=== PATIENT | female | born 1990 | race Caucasian/White ===

== ENCOUNTER 2017-03-28 12:11 | Emergency (ER) | payer BC, MEDICAID ==
[~2017-03-28] VITALS: Ht 165.1 cm; Wt 92.1 kg
[2017-03-28 12:16] VITALS: BP 121/80
[2017-03-28] MEDS ORDERED: predniSONE 20 MG TABLET ONE (12:47)
--- NOTE | 2017-03-28 12:50 | NUR ---
RT CALLED FOR BRETAHING [place]
[2017-03-28] MEDS ORDERED: IPRATROPIUM NEB FS 0.5 MG/2.5 ML AMPUL.NEB ONE (12:58)
[2017-03-28] MEDS ORDERED: ALBUTEROL FS 2.5 MG/3 ML VIAL.NEB ONE (12:58)
[2017-03-28] MEDS ORDERED: predniSONE 20 MG TABLET PO ONE (13:00)
[2017-03-28] MEDS ORDERED: ALBUTEROL FS 2.5 MG/3 ML VIAL.NEB NEB ONE (13:00)
[2017-03-28] MEDS ORDERED: IPRATROPIUM NEB FS 0.5 MG/2.5 ML AMPUL.NEB NEB ONE (13:00)
== END 2017-03-28 13:47 | disposition home or self-care (01) ==
LOC: ER 12:12
DX: J45.901 Unspecified asthma with (acute) exacerbation (principal); Z88.0 Allergy status to penicillin; Z91.018 Allergy to other foods
CPT/HCPCS: 94640; 99283; A4606; J7512; Z7610

== ENCOUNTER 2018-05-14 20:08 | Emergency (ER) | payer BC, OTHER ==
[~2018-05-14] VITALS: Ht 165.1 cm; Wt 98.9 kg
[2018-05-14 20:30] VITALS: BP 142/71
[2018-05-14] MEDS ORDERED: FAMOTIDINE (20 MG) 20 MG TABLET ONE (20:42)
[2018-05-14] MEDS ORDERED: methylPREDNISolone SOD SUCC 125 MG/2ML VIAL ONE (20:42)
[2018-05-14] MEDS ORDERED: methylPREDNISolone SOD SUCC 125 MG/2ML VIAL IM ONE (21:00)
[2018-05-14] MEDS ORDERED: FAMOTIDINE (20 MG) 20 MG TABLET PO ONE (21:00)
== END 2018-05-14 21:14 | disposition home or self-care (01) ==
LOC: ER 20:10
DX: T78.1XXA Other adverse food reactions, not elsewhere classified, initial encounter (principal); X58.XXXA Exposure to other specified factors, initial encounter
CPT/HCPCS: 96372; 99283; A4606; J2930

== ENCOUNTER 2018-06-15 15:39 | Emergency (ER) | payer BC, OTHER ==
[~2018-06-15] VITALS: Ht 162.6 cm; Wt 83.9 kg
[2018-06-15 15:43] VITALS: BP 132/81
--- NOTE | 2018-06-15 15:50 | NUR ---
PT BIBS C/O SOMETHING IN L EYE, - VISION DISTORTION, CLEAR VISUAL FIELD, -N/V - TRAUMA
[2018-06-15] MEDS ORDERED: FLUORESCEIN SODIUM OPHTH 1 EA STRIP ONE (16:03)
[2018-06-15] MEDS ORDERED: TETRACAINE HCL/PF 0.5% UD 2 ML BOTTLE ONE (16:04)
[2018-06-15] MEDS ORDERED: FLUORESCEIN SODIUM OPHTH 1 EA STRIP OP ONE (16:30)
[2018-06-15] MEDS ORDERED: TETRACAINE HCL/PF 0.5% UD 2 ML BOTTLE OP ONE (16:30)
== END 2018-06-15 16:41 | disposition home or self-care (01) ==
LOC: ER 15:39
DX: T15.92XA Foreign body on external eye, part unspecified, left eye, initial encounter (principal); J45.909 Unspecified asthma, uncomplicated; X58.XXXA Exposure to other specified factors, initial encounter; Y93.89 Activity, other specified; Y92.89 Other specified places as the place of occurrence of the external cause; Y99.8 Other external cause status

== ENCOUNTER 2018-06-16 04:13 | Emergency (ER) | payer BC, OTHER ==
[~2018-06-16] VITALS: Ht 167.6 cm; Wt 98.0 kg
[2018-06-16 04:40] VITALS: BP 126/69
--- NOTE | 2018-06-16 04:53 | NUR ---
URINE COLLECTED AND SENT TO LAB
[2018-06-16 05:04] LABS: APPEARANCE,URINE CLEAR (CLEAR); BILIRUBIN,URINE 2+ (NEGATIVE); BLOOD, URINE 3+ Ery/uL (NEGATIVE); COLOR,URINE YELLOW (YELLOW); KETONES,URINE 1+ (NEGATIVE); LEUKOCYTE ESTERASE ,URINE 2+ (NEGATIVE); NITRITE, URINE POSITIVE (NEGATIVE); PH,URINE 6.5 (5.0-8.0); PROTEIN,URINE 3+ mg/dl (NEGATIVE); UGLUCOSE NEGATIVE (NEGATIVE)
[2018-06-16 05:08] LABS: BACTERIA,URINE Few /HPF (None Seen); RBC,URINE TOO NUMEROUS TO COUN /HPF (0-2); SQUAMOUS EPITHELIAL CELL,UR Few /HPF (None Seen); WBC,URINE 21-50 /HPF (0-3)
[2018-06-16] MEDS ORDERED: PHENAZOPYRIDINE HCL 200 MG TABLET ONE (05:49)
[2018-06-16] MEDS ORDERED: NITROFURANTOIN/NITROFURAN MAC 100 MG CAPSULE ONE (05:49)
[2018-06-16] MEDS ORDERED: NITROFURANTOIN/NITROFURAN MAC 100 MG CAPSULE PO ONE (06:00)
[2018-06-16] MEDS ORDERED: PHENAZOPYRIDINE HCL 200 MG TABLET PO ONE (06:00)
== END 2018-06-16 06:03 | disposition home or self-care (01) ==
LOC: ER 04:14
DX: N30.00 Acute cystitis without hematuria (principal); J45.909 Unspecified asthma, uncomplicated
CPT/HCPCS: 81000-TC; 84703-TC; 87086-TC; 87186-TC

== ENCOUNTER 2018-06-18 15:43 | Emergency (ER) | payer BC, OTHER ==
[~2018-06-18] VITALS: Ht 167.6 cm; Wt 97.5 kg
[2018-06-18 15:43] VITALS: BP 153/75
--- NOTE | 2018-06-18 16:41 | NUR ---
SEEN AND EXAMINED BY .
[2018-06-18] MEDS ORDERED: LEVOFLOXACIN (250MG) 250 MG TABLET ONE (17:00)
[2018-06-18] MEDS ORDERED: LEVOFLOXACIN (250MG) 250 MG TABLET PO SCH (17:00)
--- NOTE | 2018-06-18 17:15 | NUR ---
Patient discharged to home in stable condition. Written and verbal after care instructions given. Patient verbalizes understanding of instruction.
== END 2018-06-18 17:17 | disposition home or self-care (01) ==
LOC: ER 15:55
DX: N39.0 Urinary tract infection, site not specified (principal); J45.909 Unspecified asthma, uncomplicated; Z98.890 Other specified postprocedural states
CPT/HCPCS: 87491; 87591; 99283; A4606

== ENCOUNTER 2023-02-03 12:24 | Emergency (ER) | payer BC, MEDICAID ==
[~2023-02-03] VITALS: Ht 165.1 cm; Wt 99.8 kg
[2023-02-03] MEDS ORDERED: ALBU18HF2 INH (13:00)
[2023-02-03] MEDS ORDERED: FLUT9.9S16 NS (13:00)
[2023-02-03] MEDS ORDERED: CETI1TAB9 PO (13:00)
[2023-02-03] MEDS ORDERED: AZIT1PAC9 PO (13:00)
[2023-02-03 13:44] VITALS: BP 131/78; TEMP 98.5; O2SAT 100
== END 2023-02-03 13:45 | disposition home or self-care (01) ==
LOC: ER 12:46
DX: R05.9 Cough, unspecified (principal); J45.909 Unspecified asthma, uncomplicated; Z91.018 Allergy to other foods

== ENCOUNTER 2023-10-06 17:38 | Emergency (ER) | payer MEDICAID, OTHER ==
[~2023-10-06] VITALS: Ht 165.1 cm; Wt 101.2 kg
[~2023-10-06 17:38] MED LIST: ALBU18HF2 INH; AZIT1PAC9 PO; CETI1TAB9 PO; FLUT9.9S16 NS
[2023-10-06] MEDS ORDERED: ALBU18HF2 INH (19:42)
[2023-10-06] MEDS ORDERED: PSEU120T99 PO (19:42)
[2023-10-06] MEDS ORDERED: BENZ-13 PO (19:42)
[2023-10-06 19:48] VITALS: BP 155/94; TEMP 98.4; O2SAT 99
== END 2023-10-06 19:48 | disposition home or self-care (01) ==
LOC: ER 17:43
DX: J06.9 Acute upper respiratory infection, unspecified (principal); J45.909 Unspecified asthma, uncomplicated; Z98.890 Other specified postprocedural states; Z79.899 Other long term (current) drug therapy; Z20.822 Contact with and (suspected) exposure to COVID-19
CPT/HCPCS: 71045-TC

== ENCOUNTER 2024-04-01 08:07 | Emergency (ER) | payer MEDICAID ==
[~2024-04-01] VITALS: Ht 165.1 cm; Wt 104.3 kg
[~2024-04-01 08:07] MED LIST changes: +BENZ-13 PO; +PSEU120T99 PO
[2024-04-01 08:15] VITALS: BP 107/65; TEMP 97.7
[2024-04-01] MEDS ORDERED: FLUT16SP16 BNOSTRILS (08:40)
[2024-04-01] MEDS ORDERED: PSEU120T83 PO (08:40)
[2024-04-01] MEDS ORDERED: [UNRECOGNIZED DRUG - CODE] PO (08:40)
[2024-04-01 08:49] VITALS: O2SAT 97
== END 2024-04-01 08:50 | disposition home or self-care (01) ==
LOC: ER 08:17
DX: J06.9 Acute upper respiratory infection, unspecified (principal); H92.01 Otalgia, right ear; E11.9 Type 2 diabetes mellitus without complications